=== PATIENT | male | born 1950 | race Caucasian/White ===

== ENCOUNTER 2017-03-20 19:37 | Emergency (ER) | payer MEDICARE ==
[~2017-03-20] VITALS: Ht 180.3 cm; Wt 126.2 kg
[2017-03-20] MEDS ORDERED: DOXAZOSIN4 MG PO (20:15)
[2017-03-20] MEDS ORDERED: METOPROL TAR25 MG PO (20:15)
[2017-03-20] MEDS ORDERED: FINASTERIDE5 MG PO (20:16)
[2017-03-20] MEDS ORDERED: NAPROSYN500 MG PO (21:40)
[2017-03-20 22:15] VITALS: BP 155/83
== END 2017-03-20 22:18 | disposition home or self-care (01) ==
LOC: ED 19:37
DX: M77.32 Calcaneal spur, left foot (principal); I10 Essential (primary) hypertension

== ENCOUNTER 2018-03-09 13:14 | Emergency (ER) | payer MEDICARE ==
[~2018-03-09] VITALS: Ht 180.3 cm; Wt 124.1 kg
[~2018-03-09 13:14] MED LIST: DOXAZOSIN4 MG PO; FINASTERIDE5 MG PO; METOPROL TAR25 MG PO; NAPROSYN500 MG PO
[2018-03-09 14:23] LABS: ALBUMIN 3.8 g/dL (3.2-5.0); ALKALINE PHOSPHATASE 90 u/l (38-126); ANION GAP 14 (6-22 (CALC)); BILIRUBIN, TOTAL 0.5 mg/dL (0.0-1.4); BUN 24 mg/dL (8-23); BUN/CREATININE RATIO 23 (12-20 (CALC)); CARBON DIOXIDE 27 mmol/l (22-30); CHLORIDE 104 mmol/l (95-108); GFR > 60 ML/MIN (>=60 (CALC)); GFR FOR AFR.AMER. > 60 ML/MIN (>=60 (CALC)); POTASSIUM 4.1 mmol/l (3.5-5.1); SGOT/AST 28 u/l (19-48); SODIUM 141 mmol/l (137-146); TOTAL PROTEIN 6.3 g/dL (6.3-8.2)
[2018-03-09] MEDS ORDERED: CATAPRES0.1 MG PO (15:12)
[2018-03-09 15:30] VITALS: BP 142/72
== END 2018-03-09 15:35 | disposition home or self-care (01) ==
LOC: ED 13:14
PROVIDERS: Emergency Medicine
DX: I10 Essential (primary) hypertension (principal); M54.9 Dorsalgia, unspecified

== ENCOUNTER → 2018-05-07 | Outpatient (REF) | payer MEDICARE ==
[~2018-05-07] MED LIST changes: +CATAPRES0.1 MG PO; +CLONIDINE0.1 MG PO; +LISINOPRIL20 MG PO
== END | disposition home or self-care (01) ==
LOC: NUCMED 05-06 11:15 → STRESS 10:52 → NUCMED 11:15
PROVIDERS: ATTEND Internal Medicine
DX: I20.9 Angina pectoris, unspecified (principal); I25.10 Atherosclerotic heart disease of native coronary artery without angina pectoris; I40.9 Acute myocarditis, unspecified
CPT/HCPCS: A9502

== ENCOUNTER 2018-06-02 19:37 | Emergency (ER) | payer MEDICARE ==
[~2018-06-02] VITALS: Ht 180.3 cm; Wt 124.2 kg
[~2018-06-02 19:37] MED LIST changes: -CLONIDINE0.1 MG PO; -LISINOPRIL20 MG PO
[2018-06-02] MEDS ORDERED: LISINOPRIL20 MG PO (19:53)
[2018-06-02 20:33] LABS: HEMATOCRIT 50.7 % (39.0-50.0); HEMOGLOBIN 17.4 g/dl (14.0-18.0); IMMATURE GRANULOCYTES 0.2 % (0.0-5.0); MEAN CELL VOLUME 90.5 fL CALC (80.0-100.0); MEAN CORPUSCULAR HGB 31.1 pG CALC (26.0-32.0); MEAN CORPUSCULAR HGB CONC 34.3 g/L CALC (32.0-36.0); NEUT# 3.78 thou/uL (1.82-7.42); RED BLOOD COUNT 5.6 mill/uL (4.70-6.10); RED CELL DISTRI WIDTH 12.8 % (11.5-15.5)
[2018-06-02 20:34] LABS: URINE BILIRUBIN - DIPSTICK NEGATIVE (NEGATIVE); URINE BLOOD DIPSTICK TRACE-INTACT (NEGATIVE); URINE COLOR YELLOW; URINE GLUCOSE - DIPSTICK NEGATIVE (NEGATIVE); URINE KETONE NEGATIVE (NEGATIVE); URINE LEUK ESTERASE NEGATIVE (NEGATIVE); URINE NITRITE - DIPSTICK NEGATIVE (Negative); URINE PROTEIN - DIPSTICK 30 mg/dL (NEG-TRACE); URINE UROBILINOGEN - DIPSTICK 0.2 E.U./dL (0.2)
[2018-06-02 20:36] LABS: URINE RBC 0-2 RBC/hpf (0-5); URINE WBC 0-2 WBC/hpf (0-5)
[2018-06-02 20:46] LABS: ALBUMIN 4.4 g/dL (3.2-5.0); ALKALINE PHOSPHATASE 113 u/l (38-126); ANION GAP 14 (6-22 (CALC)); BILIRUBIN, TOTAL 0.7 mg/dL (0.0-1.4); BUN 28 mg/dL (8-23); BUN/CREATININE RATIO 21 (12-20 (CALC)); CARBON DIOXIDE 29 mmol/l (22-30); CHLORIDE 101 mmol/l (95-108); CREATININE 1.3 mg/dL (0.7-1.3); GFR 55 ML/MIN (>=60 (CALC)); GFR FOR AFR.AMER. > 60 ML/MIN (>=60 (CALC)); POTASSIUM 4.4 mmol/l (3.5-5.1); SGOT/AST 36 u/l (19-48); SODIUM 139 mmol/l (137-146); TOTAL PROTEIN 7.3 g/dL (6.3-8.2)
[2018-06-02] MEDS ORDERED: CLONIDINE0.1 MG PO (22:10)
[2018-06-02] MEDS ORDERED: CATAPRES0.1 MG PO (22:14)
[2018-06-02 22:40] VITALS: BP 169/83
== END 2018-06-02 22:25 | disposition home or self-care (01) ==
LOC: ED 19:37
PROVIDERS: Emergency Medicine
DX: I10 Essential (primary) hypertension (principal); R35.0 Frequency of micturition

== ENCOUNTER 2018-06-27 21:27 | Emergency (ER) | payer MEDICARE ==
[~2018-06-27] VITALS: Ht 180.3 cm; Wt 123.0 kg
[~2018-06-27 21:27] MED LIST changes: +CLONIDINE0.1 MG PO; +LISINOPRIL20 MG PO
[2018-06-27 22:17] LABS: HEMATOCRIT 46.9 % (39.0-50.0); HEMOGLOBIN 16.2 g/dl (14.0-18.0); IMMATURE GRANULOCYTES 0.5 % (0.0-5.0); MEAN CELL VOLUME 90.5 fL CALC (80.0-100.0); MEAN CORPUSCULAR HGB 31.3 pG CALC (26.0-32.0); MEAN CORPUSCULAR HGB CONC 34.5 g/L CALC (32.0-36.0); NEUT# 6.39 thou/uL (1.82-7.42); RED BLOOD COUNT 5.18 mill/uL (4.70-6.10); RED CELL DISTRI WIDTH 12.7 % (11.5-15.5)
[2018-06-27] MEDS ORDERED: AMOXICILLIN500 MG PO (22:42)
[2018-06-27 22:46] VITALS: BP 146/83
== END 2018-06-27 22:46 | disposition home or self-care (01) ==
LOC: ED 21:27
PROVIDERS: Family Medicine
DX: J02.0 Streptococcal pharyngitis (principal); J06.9 Acute upper respiratory infection, unspecified; R50.9 Fever, unspecified; R05 Cough; R09.81 Nasal congestion

== ENCOUNTER 2021-05-20 11:58 | Emergency (ER) | payer MEDICARE ==
[~2021-05-20] VITALS: Ht 180.3 cm; Wt 118.6 kg
[~2021-05-20 11:58] MED LIST changes: +AMOXICILLIN500 MG PO; +COUMADIN5 MG PO; +D3400 UNI1 PO; +MULTIVITAMI9 PO; +NORVASC5 M1 PO; +TAMSULOSIN HCL0.4 MG PO
[2021-05-20 13:06] LABS: URINE BILIRUBIN - DIPSTICK NEGATIVE (NEGATIVE); URINE BLOOD DIPSTICK LARGE (NEGATIVE); URINE COLOR YELLOW; URINE GLUCOSE - DIPSTICK NEGATIVE (NEGATIVE); URINE KETONE TRACE mg/dL (NEGATIVE); URINE PH 5.5 (4.5-8.0); URINE PROTEIN - DIPSTICK TRACE mg/dL (NEG-TRACE); URINE SPECIFIC GRAVITY 1.025; URINE UROBILINOGEN - DIPSTICK 0.2 E.U./dL (0.2)
[2021-05-20 13:09] LABS: URINE BACTERIA FEW hpf; URINE EPITHELIAL CELLS FEW EPI/hpf (0-FEW); URINE LEUK ESTERASE SMALL (NEGATIVE); URINE NITRITE - DIPSTICK NEGATIVE (Negative)
[2021-05-20 13:38] LABS: HEMATOCRIT 43.2 % (39.0-50.0); IMMATURE GRANULOCYTES 0.2 % (0.0-5.0); MEAN CELL VOLUME 94.5 fL CALC (80.0-100.0); MEAN CORPUSCULAR HGB 30.9 pG CALC (26.0-32.0); MEAN CORPUSCULAR HGB CONC 32.6 g/dL CAL (32.0-36.0); RED BLOOD COUNT 4.57 mill/uL (4.70-6.10); RED CELL DISTRI WIDTH 13.9 % (11.5-15.5)
[2021-05-20 13:48] LABS: HEMOGLOBIN 14.1 g/dl (14.0-18.0)
[2021-05-20 13:50] LABS: ACT PARTIAL THROMBO TIME 29.4 SECONDS (20.0-32.5); INTERNATIONAL NORMALIZED RATIO 2.1 RATIO (0.7-1.3); PROTHROMBIN TIME 21.2 SECONDS (9.0-12.5)
[2021-05-20 14:14] LABS: ALBUMIN 3.7 g/dL (3.2-5.0); ALKALINE PHOSPHATASE 87 u/l (38-126); AMYLASE 69 u/l (30-110); ANION GAP 10 (6-22 (CALC)); BUN 33 mg/dL (8-23); BUN/CREATININE RATIO 33 (12-20 (CALC)); CARBON DIOXIDE 26 mmol/l (22-30); CHLORIDE 107 mmol/l (95-108); GFR > 60 ML/MIN (>=60 (CALC)); GFR FOR AFR.AMER. > 60 ML/MIN (>=60 (CALC)); LIPASE 44 u/l (23-300); POTASSIUM 4.1 mmol/l (3.5-5.1); SGOT/AST 23 u/l (19-48); SODIUM 139 mmol/l (137-146); TOTAL PROTEIN 6.7 g/dL (6.3-8.2)
[2021-05-20 14:18] LABS: BILIRUBIN, TOTAL 0.5 mg/dL (0.0-1.4)
[2021-05-20] MEDS ORDERED: KEFLEX500 MG PO (16:25)
[2021-05-20] MEDS ORDERED: HYDROCO/APAP1 TA9 PO (16:25)
[2021-05-20 16:46] VITALS: BP 145/71
== END 2021-05-20 16:47 | disposition home or self-care (01) ==
LOC: ED 11:58
DX: R10.31 Right lower quadrant pain (principal); N39.0 Urinary tract infection, site not specified; I10 Essential (primary) hypertension; Z98.890 Other specified postprocedural states

== ENCOUNTER 2022-04-18 01:40 | Observation (INO) | payer MEDICARE ==
[~2022-04-18] VITALS: Ht 180.3 cm; Wt 85.0 kg
[2022-04-18] VITALS (13 sets, daily range): BP systolic 110–190; BP diastolic 68–88
[~2022-04-18 01:40] MED LIST changes: -COUMADIN5 MG PO; +HYDROCO/APAP1 TA9 PO; +KEFLEX500 MG PO; +WARFARIN5 MG PO
[2022-04-18] MEDS ORDERED: WARFARIN5 MG PO (02:19)
[2022-04-18] MEDS ORDERED: ATENOLOL25 MG PO (02:20)
[2022-04-18] MEDS ORDERED: LIPITOR20 M1 PO (02:20)
[2022-04-18] MEDS ORDERED: ISOSORB MONO30 MG PO (02:21)
[2022-04-18] MEDS ORDERED: VITAMIN D32000 UNI2 (02:21)
[2022-04-18] MEDS ORDERED: VITAMIN B-12500 MCG PO (02:22)
--- NOTE | 2022-04-18 02:45 | NUR ---
PATIENT TAKEN TO ROOM 10 AND TRIAGED. SEEN BY PHYSICIAN.
[2022-04-18 03:20] LABS: BASO% 0.2 % (0-3); EOS% 2.2 % (0-8); HEMATOCRIT 46.6 % (39.0-50.0); HEMOGLOBIN 15.6 g/dl (14.0-18.0); IMMATURE GRANULOCYTES 0.2 % (0.0-5.0); LYMPH% 31.6 % (15-41); MEAN CELL VOLUME 94.5 fL CALC (80.0-100.0); MEAN CORPUSCULAR HGB 31.6 pG CALC (26.0-32.0); MEAN CORPUSCULAR HGB CONC 33.5 g/dL CAL (32.0-36.0); MONO% 9.7 % (2-13); NEUT# 2.53 thou/uL (1.82-7.42); NEUT% 56.1 % (42-76); RED BLOOD COUNT 4.93 mill/uL (4.70-6.10); RED CELL DISTRI WIDTH 13.4 % (11.5-15.5)
[2022-04-18 03:39] LABS: INTERNATIONAL NORMALIZED RATIO 1.9 RATIO (0.7-1.3); PROTHROMBIN TIME 18.8 SECONDS (9.0-12.5)
[2022-04-18 03:40] LABS: ALKALINE PHOSPHATASE 102 u/l (38-126); ANION GAP 7 (6-22 (CALC)); BUN 14 mg/dL (8-23); BUN/CREATININE RATIO 17 (12-20 (CALC)); CARBON DIOXIDE 31 mmol/l (22-30); CHLORIDE 106 mmol/l (95-108); CREATININE 0.8 mg/dL (0.7-1.3); GFR FOR AFR.AMER. > 60 ML/MIN (>=60 (CALC)); GFR OTHER RACES > 60 ML/MIN (>=60 (CALC)); POTASSIUM 4.8 mmol/l (3.5-5.1); SGOT/AST 36 u/l (19-48); SODIUM 139 mmol/l (137-146); TOTAL PROTEIN 6.7 g/dL (6.3-8.2)
[2022-04-18 03:46] LABS: BILIRUBIN, TOTAL 0.8 mg/dL (0.2-1.3)
[2022-04-18 04:42] LABS: URINE BILIRUBIN - DIPSTICK NEGATIVE (NEGATIVE); URINE BLOOD DIPSTICK NEGATIVE (NEGATIVE); URINE COLOR YELLOW; URINE GLUCOSE - DIPSTICK NEGATIVE (NEGATIVE); URINE KETONE NEGATIVE (NEGATIVE); URINE LEUK ESTERASE NEGATIVE (NEGATIVE); URINE PH 7.5 (4.5-8.0); URINE PROTEIN - DIPSTICK NEGATIVE (NEG-TRACE); URINE UROBILINOGEN - DIPSTICK 0.2 E.U./dL (0.2)
[2022-04-18 04:44] LABS: URINE NITRITE - DIPSTICK NEGATIVE (Negative)
--- NOTE | 2022-04-18 05:30 | NUR ---
PATIENT IS PENDING ADMISSION. AWAITING ROOM ASSIGNMENT.
--- NOTE | 2022-04-18 06:29 | NUR ---
REPORT GIVEN TO LAURA. PATIENT ADMIT TO 260.
--- NOTE | 2022-04-18 06:48 | NUR ---
PT ARRIVED TO [facility] VIA WHEELCHAIR, ACCOMPANIED BY BRIANNE. PT ORIENTED TO ROOM AND USE OF CALL LIGHT. TELEMETRY IN PLACE. IV SITE FLUSHED: #20 RT AC, HEALTHY AND PATENT. SAFETY PRECAUTIONS IN PLACE WITH CALL LIGHT IN REACH.
--- NOTE | 2022-04-18 07:39 | NUR ---
0700 BEDSIDE REPORT RECEIVED FROM JAKOB CHARLES. PT ALERT AND ORIENTED X4. ABLE TO MAKE NEEDS KNOWN. NO COMPLAINTS VOCIED AT THIS TIME. RESP EVEN AND UNLABORED. NO SIGNS 0F DISTRESS NOTED. PT UPDATED ON POC, VERBALIZES UNDERSTANDING WILL REINFORCE NEEDED. ALL PERSONAL ITEMS WITHIN REACH. SAFETY PRECAUTIONS IN PLACE.
[2022-04-18] MEDS ORDERED: MECLIZINE12.5 M1 PO (11:21)
--- NOTE | 2022-04-18 16:12 | NUR ---
1600 IV REMOVED WITH TIP INACT, NO IV RELATED COMPLICATIONS NOTED. TELE REMOVED BY NIVIA ZHU. DC INSTRUCTIONS EXPLAINED TO PT, PT VERBALIZES UNDERSTANDING AND DENIES QUESTIONS. PRESCRIPTION SENT ELCTRONICALLY TO PT'S PREFERRED PHARMACY. PT DC'D HOME WITH WITH ALL PERSONAL BELONGINGS @ 1600. PT ADVISED TO GO DIRECTLY TO DR. VELARDE'S OFFICE TO GET HOLTER MONITOR, PT VERBALIZES UNDERSTANDING.
== END 2022-04-18 16:00 | disposition home or self-care (01) ==
LOC: ED 01:40 → ED-I 02:33 → ED 05:15 → MS2 05:16
PROVIDERS: Emergency Medicine; ADMIT Internal Medicine; ATTEND Internal Medicine
DX: R42 Dizziness and giddiness (principal); R00.1 Bradycardia, unspecified; I10 Essential (primary) hypertension; I48.91 Unspecified atrial fibrillation; N40.0 Benign prostatic hyperplasia without lower urinary tract symptoms